=== PATIENT | female | born 2000 | race Caucasian/White ===

== ENCOUNTER 2020-12-07 09:08 | Emergency (ER) | payer SELFPAY ==
[~2020-12-07] VITALS: Ht 160 cm; Wt 69.0 kg
[2020-12-07] MEDS ORDERED: ONDA4TAB11 PO (10:50)
[2020-12-07] MEDS ORDERED: BENZ100C18 PO (10:50)
[2020-12-07] MEDS ORDERED: RT-ALBUINH IH (10:50)
[2020-12-07] MEDS ORDERED: DEXA6TAB6 PO (10:50)
--- NOTE | 2020-12-07 10:50 | ED Respiratory ---
General Chief Complaint: Cough/Cold/Flu Symptoms Stated Complaint: LOSS OF TASTE AND SMELL/SOB Nursing Triage Note: ARRIVED VIA AMB TO ROOM 08 WITH COMPLAINTS OF FEVER, COUGH, LOSS OF TASTE AND SMELL AND SORE THROAT STARTING YESTERDAY. Source: patient History of Present Illness Date Seen by Provider: Dec 07, 2020 Time Seen by Provider: 09:55 Initial Comments PT ARRIVES VIA POV FROM HOME STATES SHE STARTED GETTING SICK YESTERDAY C/O SUBJECTIVE FEVER/SWEATS/CHILLS C/O SORE THROAT C/O LOSS OF TASTE AND SMELL C/O NASAL CONGESTION C/O MILD COUGH C/O MILD SHORTNESS OF BREATH C/O NAUSEA, NO VOMITING C/O DIARRHEA X 2 C/O HEADACHE HAS NOT TAKEN ANYTHING FOR SYMPTOMS PT HAS NOT RECEIVED COVID-19 VACCINE PT WORKS AT [employer] PT LIVES WITH HER DAD--HE IS NOT ILL NO CHRONIC MEDICAL PROBLEMS OR RESPIRATORY ILLNESSES LMP 2 MONTHS AGO--HAD DEPO PROVERA SHOT 2 MONTHS AGO PCP: JALEN Allergies and Home Medications Allergies Coded Allergies: ibuprofen (Verified Allergy, Severe, EDEMA, 12/07/20) Home Medications Albuterol Sulfate 1 Puff Puff, 2 PUFF IH Q4H 1 PUFF = 90 MCG Prescribed by: AMOS SHETTY on 12/07/20 1050 Benzonatate 100 Mg Capsule, 100 MG PO TID Prescribed by: AMOS SHETTY on 12/07/20 1050 Dexamethasone 6 Mg Tablet, 6 MG PO DAILY Prescribed by: AMOS SHETTY on 12/07/20 1050 Ondansetron 4 Mg Tab.rapdis, 4 MG PO Q4H Prescribed by: AMOS SHETTY on 12/07/20 1050 Patient Home Medication List Home Medication List Reviewed: Yes Review of Systems Review of Systems Constitutional: see HPI, chills, diaphoresis, fever EENTM: see HPI, nose congestion, throat pain Respiratory: see HPI, cough, short of breath Cardiovascular: no symptoms reported Gastrointestinal: see HPI; No abdominal pain; diarrhea, nausea Genitourinary: no symptoms reported; No decreased output Musculoskeletal: no symptoms reported Skin: no symptoms reported Psychiatric/Neurological: See HPI, Headache Hematologic/Lymphatic: No Symptoms Reported Immunological/Allergic: no symptoms reported Past Ngkwnrn-Bnoxxq-Loqbwb Hx Patient Social History Tobacco Use?: Yes Smoking Status: Never a Smoker Substance use?: No Alcohol Use?: Yes Alcohol type: Beer Alcohol Frequency: Once in a while Past Medical History Surgeries: No Respiratory: No Cardiac: No Neurological: No Genitourinary: No Gastrointestinal: No Musculoskeletal: No Endocrine: No HEENT: No Cancer: No Psychosocial: No Integumentary: No Blood Disorders: No Physical Exam Vital Signs - First Documented 12/07/20 09:45 Temp 36.6 Pulse 87 Resp 16 B/P (MAP) 114/75 (88) Pulse Ox 100 O2 Delivery Room Air Capillary Refill : Less Than 3 Seconds Height: '" Weight: lbs. oz. kg; 26.00 BMI Method: General Appearance: WD/WN, no apparent distress, other (DOES NOT APPEAR ILL OR TO BE IN ANY DISCOMFORT OR DISTRESS. 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, no motor/sensory deficits, alert, normal mood/affect, oriented x 3 Skin: normal color, warm/dry; No rash Progress/Results/Core Measures Suspected Sepsis SIRS Temperature: Pulse: 87 Respiratory Rate: 16 Blood Pressure 114 /75 Mean: 88 Results/Orders Lab Results Laboratory Tests Test 12/07/20 09:50 Range/Units Influenza Type A (RT-PCR) Not Detected Not Detecte Influenza Type B (RT-PCR) Not Detected Not Detecte SARS-CoV-2 RNA (RT-PCR) Detected H Not Detecte My Orders Orders - AMOS SHETTY DO Covid 19 Inhouse Test (12/07/20 09:37) Influenza A And B By Pcr (12/07/20 09:37) Vital Signs/I&O 12/07/20 12/07/20 09:45 11:06 Temp 36.6 36.6 Pulse 87 87 Resp 16 16 B/P (MAP) 114/75 (88) 114/75 (88) Pulse Ox 100 100 O2 Delivery Room Air Capillary Refill : Less Than 3 Seconds Blood Pressure Mean: 88 Progress Note : Progress Note PLACED IN ISOLATION ROOM PPE WORN AT ALL TIMES COVID-19 TESTING PERFORMED PT ADVISED OF NEED FOR QUARANTINE Departure Impression Primary Impression: COVID-19 virus infection Disposition: 01 HOME, SELF-CARE Condition: Stable Departure-Patient Inst. Decision time for Depature: 10:45 Referrals: [facility]ON[facility] WOLF Patient Instructions: COVID-19 (DC), Preventing the Spread of an Infectious Disease Add. Discharge Instructions: LOTS OF CLEAR LIQUIDS--WATER, BROTH, JELLO, GATORADE TYLENOL 1 GRAM/ MOTRIN 800 MG 4 TIMES A DAY FOR PAIN OR FEVER QUARANTINE FOR 2 WEEKS, OR LONGER IF YOU ARE STILL HAVING SYMPTOMS FOLLOW UP WITH YOUR DR IN 5-7 DAYS IF NO BETTER, RETURN TO ER IF SYMPTOMS WORSEN All discharge instructions reviewed with patient and/or family. Voiced understanding. Scripts Benzonatate (TESSALON PERLES) 100 Mg Capsule 100 MG PO TID, #30 CAP Prov: AMOS SHETYT DO 12/07/20 Ondansetron (Ondansetron Odt) 4 Mg Tab.rapdis 4 MG PO Q4H for Nausea/Vomiting, #10 TAB Prov: AMOS SHETTY DO 12/07/20 Albuterol Sulfate (PROAIR HFA) 1 Puff Puff 2 PUFF IH Q4H, #1 EA 1 PUFF = 90 MCG Prov: AMOS SHETTY DO 12/07/20 Dexamethasone (Decadron) 6 Mg Tablet 6 MG PO DAILY, #10 TAB Prov: AMOS SHETTY DO 12/07/20 Work/School Note: Work Release Form Date Seen in the Emergency Department: Dec 07, 2020 Return to Work: Dec 22, 2020 Restrictions: Need Release from Doctor AMOS SHETTY DO Dec 07, 2020 10:50
[2020-12-07 11:06] VITALS: BP 114/75
== END 2020-12-07 11:06 | disposition home or self-care (01) ==
LOC: ER 09:10
DX: U07.1 COVID-19 (principal)
CPT/HCPCS: 87636; 99282

== ENCOUNTER 2022-02-12 12:25 | Emergency (ER) | payer BC ==
[~2022-02-12] VITALS: Ht 162.5 cm; Wt 69.0 kg
[~2022-02-12 12:25] MED LIST: BENZ100C18 PO; DEXA6TAB6 PO; ONDA4TAB11 PO; RT-ALBUINH IH
[2022-02-12] MEDS ORDERED: ONDANSETRON 4 MG/2 ML (SDV) Z0FRAN IVP ONE (13:00)
[2022-02-12] MEDS ORDERED: LACTATED RINGERS 1,000 ML IV ONE (13:00)
--- NOTE | 2022-02-12 13:02 | ED GI ---
General Stated Complaint: ETOH VOMITING/NAUSEA/DIZZY/CONFUSED Source of Information: Patient (KASSIDYASHUTOSH HERNANDEZ) History of Present Illness Date Seen by Provider: Feb 12, 2022 Time Seen by Provider: 12:50 Initial Comments Patient is a previously healthy 21 yo M who presents to the ED with nausea/vomiting/dizziness that began earlier today. She states she drank a lot of alcohol last night but is unable to quantify how much. She states she also smoked some marijuana. She states she has never felt this way after drinking alcohol or smoking marijuana. Patient denies any abdominal pain, bloody emesis, diarrhea, chest pain, shortness of breath. LMP was a few weeks ago per patient. Timing/Duration: 4-6 Hours Severity/Quality: Moderate Radiation: No Radiation (ASHUTOSH SHARP APRN) Allergies and Home Medications Allergies Coded Allergies: ibuprofen (Verified Allergy, Severe, EDEMA, 12/07/20) Patient Home Medication List Home Medication List Reviewed: Yes (ASHUTOSH SHARP APRN) Albuterol Sulfate (Proair Hfa) 1 Puff Puff, 2 PUFF IH Q4H Prescribed by: AMOS SHETTY on 12/07/20 1050 Benzonatate (Tessalon Perles) 100 Mg Capsule, 100 MG PO TID Prescribed by: AMOS SHETTY on 12/07/20 1050 Dexamethasone (Decadron) 6 Mg Tablet, 6 MG PO DAILY Prescribed by: AMOS SHETTY on 12/07/20 1050 Ondansetron (Ondansetron Odt) 4 Mg Tab.rapdis, 4 MG PO Q4H Prescribed by: AMOS SHETTY on 12/07/20 1050 Ondansetron (Ondansetron Odt) 4 Mg Tab.rapdis, 4 MG PO Q6H PRN for NAUSEA/VOMITING-1ST LINE Prescribed by: Ashutosh Sharp on 02/12/22 1514 Review of Systems Review of Systems Constitutional: dizziness EENTM: No Symptoms Reported Respiratory: No Symptoms Reported Cardiovascular: No Symptoms Reported Gastrointestinal: Nausea, Vomiting Genitourinary: No Symptoms Reported Musculoskeletal: no symptoms reported Skin: no symptoms reported Psychiatric/Neurological: No Symptoms Reported Endocrine: No Symptoms Reported (ASHUTOSH SHARP APRN) Past Wmclrjf-Fboprw-Gkncss Hx Past Medical History Surgeries: No Respiratory: No Cardiac: No Neurological: No Genitourinary: No Gastrointestinal: No Musculoskeletal: No Endocrine: No HEENT: No Cancer: No Psychosocial: No Integumentary: No Blood Disorders: No (ASHUTOSH SHARP APRN) Physical Exam Vital Signs Vital Signs - First Documented 02/12/22 12:28 Temp 36.7 Pulse 79 Resp 18 B/P (MAP) 122/83 (96) Pulse Ox 100 O2 Delivery Room Air (RC HILL MD) Vital Signs Capillary Refill : (ASHUTOSH SHARP APRN) Height/Weight/BMI Height: '" Weight: lbs. oz. kg; 26.00 BMI Method: General Appearance: WD/WN, no apparent distress HEENT: PERRL/EOMI, normal ENT inspection, TMs normal, pharynx normal Neck: non-tender, full range of motion, supple, normal inspection Respiratory: chest non-tender, lungs clear, normal breath sounds, no respiratory distress, no accessory muscle use Cardiovascular: normal peripheral pulses, regular rate, rhythm, no edema, no gallop, no JVD, no murmur Gastrointestinal: normal bowel sounds, non tender, soft, no organomegaly, no pulsatile mass Extremities: normal range of motion, non-tender, normal inspection, no pedal edema, no calf tenderness, normal capillary refill, pelvis stable Pelvic: normal external exam, normal adnexa, no cerv. 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, no motor/sensory deficits, alert, normal mood/affect, oriented x 3 Skin: normal color, warm/dry (ASHUTOSH SHARP APRN) Progress/Results/Core Measures Results/Orders Lab Results Laboratory Tests Test 02/12/22 13:20 02/12/22 14:13 Range/Units White Blood Count 11.3 H 4.3-11.0 10^3/uL Red Blood Count 5.04 3.80-5.11 10^6/uL Hemoglobin 15.7 11.5-16.0 g/dL Hematocrit 46 35-52 % Mean Corpuscular Volume 91 80-99 fL Mean Corpuscular Hemoglobin 31 25-34 pg Mean Corpuscular Hemoglobin Concent 34 32-36 g/dL Red Cell Distribution Width 13.1 10.0-14.5 % Platelet Count 363 130-400 10^3/uL Mean Platelet Volume 9.4 9.0-12.2 fL Immature Granulocyte % (Auto) 0 % Neutrophils (%) (Auto) 87 H 42-75 % Lymphocytes (%) (Auto) 9 L 12-44 % Monocytes (%) (Auto) 4 0-12 % Eosinophils (%) (Auto) 0 0-10 % Basophils (%) (Auto) 0 0-10 % Neutrophils # (Auto) 9.8 H 1.8-7.8 10^3/uL Lymphocytes # (Auto) 1.0 1.0-4.0 10^3/uL Monocytes # (Auto) 0.4 0.0-1.0 10^3/uL Eosinophils # (Auto) 0.0 0.0-0.3 10^3/uL Basophils # (Auto) 0.0 0.0-0.1 10^3/uL Immature Granulocyte # (Auto) 0.0 0.0-0.1 10^3/uL Neutrophils % (Manual) 87 % Lymphocytes % (Manual) 10 % Monocytes % (Manual) 2 % Band Neutrophils 1 % Blood Morphology Comment NORMAL Sodium Level 145 135-145 MMOL/L Potassium Level 3.8 3.6-5.0 MMOL/L Chloride Level 104 98-107 MMOL/L Carbon Dioxide Level 22 21-32 MMOL/L Anion Gap 19 H 5-14 MMOL/L Blood Urea Nitrogen 6 L 7-18 MG/DL Creatinine 0.77 0.60-1.30 MG/DL Estimat Glomerular Filtration Rate 111 BUN/Creatinine Ratio 8 Glucose Level 110 H 70-105 MG/DL Calcium Level 10.2 H 8.5-10.1 MG/DL Corrected Calcium 8.5-10.1 MG/DL Magnesium Level 1.8 1.6-2.4 MG/DL Total Bilirubin 0.4 0.1-1.0 MG/DL Aspartate Amino Transf (AST/SGOT) 18 5-34 U/L Alanine Aminotransferase (ALT/SGPT) 17 0-55 U/L Alkaline Phosphatase 90 40-136 U/L Total Protein 9.1 H 6.4-8.2 GM/DL Albumin 5.3 H 3.2-4.5 GM/DL Lipase 24 8-78 U/L Serum Test, Qualitative NEGATIVE NEGATIVE Serum Alcohol < 10 <10 MG/DL Urine Color YELLOW Urine Clarity CLEAR Urine pH 8.0 5-9 Urine Specific [place] 1.015 L 1.016-1.022 Urine Protein TRACE H NEGATIVE Urine Glucose (UA) NEGATIVE NEGATIVE Urine Ketones NEGATIVE NEGATIVE Urine Nitrite NEGATIVE NEGATIVE Urine Bilirubin NEGATIVE NEGATIVE Urine Urobilinogen 0.2 < = 1.0 MG/DL Urine Leukocyte Esterase NEGATIVE NEGATIVE Urine RBC (Auto) NEGATIVE NEGATIVE Urine RBC NONE /HPF Urine WBC 0-2 /HPF Urine Squamous Epithelial Cells 0-2 /HPF Urine Crystals NONE /LPF Urine Bacteria LARGE H /HPF Urine Casts NONE /LPF Urine Mucus NEGATIVE /LPF Urine Culture Indicated YES Urine Opiates Screen NEGATIVE NEGATIVE Urine Oxycodone Screen NEGATIVE NEGATIVE Urine Methadone Screen NEGATIVE NEGATIVE Urine Propoxyphene Screen NEGATIVE NEGATIVE Urine Barbiturates Screen NEGATIVE NEGATIVE Ur Tricyclic Antidepressants Screen NEGATIVE NEGATIVE Urine Phencyclidine Screen NEGATIVE NEGATIVE Urine Amphetamines Screen NEGATIVE NEGATIVE Urine Methamphetamines Screen NEGATIVE NEGATIVE Urine Benzodiazepines Screen NEGATIVE NEGATIVE Urine Cocaine Screen POSITIVE H NEGATIVE Urine Cannabinoids Screen POSITIVE H NEGATIVE (RC HILL MD) My Orders Orders - RC HILL MD Ed Iv/Invasive Line Start (02/12/22 12:48) Lactated Ringers (Lr 1000 Ml Iv Solution (02/12/22 13:00) Ondansetron Injection (Zofran Injectio (02/12/22 13:00) Cbc With Automated Diff (02/12/22 12:48) Comprehensive Metabolic Panel (02/12/22 12:48) Hcg,Qualitative Serum (02/12/22 12:48) Magnesium (02/12/22 12:48) Alcohol (02/12/22 12:48) Manual Differential (02/12/22 13:20) Drug Screen Stat (Urine) (02/12/22 14:00) Lipase (02/12/22 14:00) Ua Culture If Indicated (02/12/22 14:00) Urine Culture (02/12/22 14:13) (RC HILL MD) Medications Given in ED Current Medications Medications Dose Ordered Sig/Jeni Route Start Time Stop Time Status Last Admin Dose Admin Lactated Ringer's 1,000 ml @ 0 mls/hr Q0M ONCE IV 02/12/22 13:00 02/12/22 13:01 DC 02/12/22 13:19 0 MLS/HR Ondansetron HCl 8 mg ONCE ONCE IVP 02/12/22 13:00 02/12/22 13:01 DC 02/12/22 13:19 8 MG (RC HILL MD) Vital Signs/I&O 02/12/22 02/12/22 12:28 15:34 Temp 36.7 Pulse 79 74 Resp 18 18 B/P (MAP) 122/83 (96) 117/78 Pulse Ox 100 100 O2 Delivery Room Air Room Air (RC HILL MD) Progress Progress Note : Time: 14:01 Progress Note Patient was initially interviewed and examined by ROSE MARY Montgomery. I stopped in to check on patient and she is feeling much better after IV fluids and Zofran. She is perplexed about why she felt so terrible this morning. She still felt intoxicated after sleeping. She has never felt this way after a night of drinking alcohol in the past. I offered her drug screen to help determine if there are any other illicit substances detectable in her urine. She would like the drug screen obtained. She admits to using marijuana but did not use any other illicit substances. I have also added a lipase. (RC HILL MD) Departure Impression Primary Impression: Alcohol abuse Additional Impression: Marijuana use Disposition: 01 HOME, SELF-CARE Condition: Improved Departure-Patient Inst. Decision time for Depature: 15:00 (ASHUTOSH SHARP APRN) Referrals: NO,LOCAL PHYSICIAN (PCP/Family) Primary Care Physician Scripts Ondansetron (Ondansetron Odt) 4 Mg Tab.rapdis 4 MG PO Q6H PRN for NAUSEA/VOMITING-1ST LINE for 7 Days, #20 TAB Prov: ASHUTOSH SHARP APRN 02/12/22 ATTENDING PHYSICIAN NOTE: I was physically present as attending physician in the emergency department during the care of this patient. I was involved in the care of this patient to the extent outlined above. (RC HILL MD) ASHUTOSH SHARP APRN Feb 12, 2022 13:02 RC HILL MD Feb 12, 2022 14:03
[2022-02-12 13:28] LABS: BASOPHILS % (AUTO) 0 % (0-10); EOSINOPHILS % (AUTO) 0 % (0-10); HEMATOCRIT 46 % (35-52); HEMOGLOBIN 15.7 g/dL (11.5-16.0); LYMPHOCYTES % (AUTO) 9 % (12-44); MEAN CORPUSCULAR HEMOGLOBIN 31 pg (25-34); MEAN CORPUSCULAR HGB CONC 34 g/dL (32-36); MEAN CORPUSCULAR VOLUME 91 fL (80-99); MEAN PLATELET VOLUME 9.4 fL (9.0-12.2); MONOCYTES # (AUTO) 0.4 10^3/uL (0.0-1.0); MONOCYTES % (AUTO) 4 % (0-12); NEUTROPHILS # (AUTO) 9.8 10^3/uL (1.8-7.8); NEUTROPHILS % (AUTO) 87 % (42-75); PLATELET COUNT 363 10^3/uL (130-400); WHITE BLOOD COUNT 11.3 10^3/uL (4.3-11.0)
[2022-02-12 13:39] LABS: ALBUMIN 5.3 GM/DL (3.2-4.5); CHLORIDE 104 MMOL/L (98-107); POTASSIUM 3.8 MMOL/L (3.6-5.0); SODIUM 145 MMOL/L (135-145)
[2022-02-12 13:40] LABS: CALCIUM 10.2 MG/DL (8.5-10.1)
[2022-02-12 13:42] LABS: GLUCOSE 110 MG/DL (70-105); TOTAL PROTEIN 9.1 GM/DL (6.4-8.2)
[2022-02-12 13:43] LABS: CARBON DIOXIDE 22 MMOL/L (21-32)
[2022-02-12 13:44] LABS: BILIRUBIN,TOTAL 0.4 MG/DL (0.1-1.0)
[2022-02-12 13:45] LABS: ALKALINE PHOSPHATASE 90 U/L (40-136); CREATININE SERUM 0.77 MG/DL (0.60-1.30); GFR ESTIMATED 111
[2022-02-12 13:46] LABS: BAND NEUTROPHILS 1 %; BUN/CREATININE RATIO 8; LYMPHOCYTES % (MANUAL) 10 %; MONOCYTES % (MANUAL) 2 %; NEUTROPHILS % (MANUAL) 87 %; RBC MORPH NORMAL
[2022-02-12 13:48] LABS: ALANINE AMINOTRANSFERASE 17 U/L (0-55); MAGNESIUM 1.8 MG/DL (1.6-2.4)
[2022-02-12 14:20] LABS: BILIRUBIN,URINE NEGATIVE (NEGATIVE); CLARITY,URINE CLEAR; COLOR,URINE YELLOW; GLUCOSE, URINE (UA) NEGATIVE (NEGATIVE); KETONES,URINE NEGATIVE (NEGATIVE); LEUKOCYTE ESTERASE ,URINE NEGATIVE (NEGATIVE); NITRITE,URINE NEGATIVE (NEGATIVE); PROTEIN,URINE TRACE (NEGATIVE)
[2022-02-12 14:28] LABS: BACTERIA,URINE LARGE /HPF; SQUAMOUS EPITHELIAL CELL,UR 0-2 /HPF; WBC,URINE 0-2 /HPF
[2022-02-12 14:37] LABS: AMPHETAMINE SCREEN, URINE NEGATIVE (NEGATIVE); BARBITURATE SCREEN URINE NEGATIVE (NEGATIVE); BENZODIAZEPINES SCREEN URINE NEGATIVE (NEGATIVE); CANNABINOID SCREEN, URINE POSITIVE (NEGATIVE); COCAINE SCREEN URINE POSITIVE (NEGATIVE); METHADONE STAT NEGATIVE (NEGATIVE); OPIATE SCREEN URINE NEGATIVE (NEGATIVE); OXYCODONE STAT NEGATIVE (NEGATIVE); PROPOXYPHENE STAT NEGATIVE (NEGATIVE); TRICYCLIC ANTIDEPRESSANTS SCRE NEGATIVE (NEGATIVE)
[2022-02-12] MEDS ORDERED: ONDA4TAB11 PO (15:14)
[2022-02-12 15:34] VITALS: BP 117/78
== END 2022-02-12 15:34 | disposition home or self-care (01) ==
LOC: EDUNIT# 12:25 → ER 12:28
DX: F10.10 Alcohol abuse, uncomplicated (principal); F15.90 Other stimulant use, unspecified, uncomplicated
CPT/HCPCS: 80053; 80306; 81000; 83690; 83735; 84703; 85007; 85027; 87077; 87088; 99284; G0480; 36415; 80320